=== PATIENT | female | born 1960 | race Caucasian/White ===

== ENCOUNTER 2019-06-13 09:04 | Emergency (ER) | payer MEDICARE ==
--- NOTE | 2019-06-13 09:23 | ERPHSYRPT ---
- History of Present Illness Time Seen by Provider: 06/13/19 09:10 Source: EMS, residential records Exam Limitations: clinical condition Physician History: Patient began having alteration in mental status and respiratory distress. She is taking antibiotics for bronchitis. EMS attempted to take patient to [facility], but her respiratory distress worsened, so she was brought to this emergency department for airway securement. Patient was recently in the past week discharged from [facility] for volume overload and she is a dialysis patient. EMS gave patient 2 mg milligrams of Narcan, but this was very temporary.of Narcan due to patient wearing a fentanyl patch which did slightly help her respiratory status, but then she continued to worsen and have gurgling breath sounds. EMS physical examination findings during the transportation of the patient emerged from found the patient to be diaphoretic/hot to the touch, lethargic to almost obtunded and presentation, and favored her left side she was leaning to that side. Again, patient brief improvement in mentation and breathing status when she was given 2 mg of Narcan, but this was temporary per EMS personnel. Timing/Duration: today, hour(s) (1) Activities at Onset: none Severity of Dyspnea-Max: severe Severity of Dyspnea-Current: severe Possible Cause: frequent episodes Modifying Factors: Improves With: nothing Associated Symptoms: No fever International travel in last 2 weeks: No Allergies/Adverse Reactions: Penicillins Allergy (Mild, Verified 06/21/16 16:03) HEART RATE GOES HIGH Home Medications: Oxycodone HCl/Acetaminophen [Percocet 7.5-325 mg Tablet] 1 each PO BID PRN 01/04 [History] Alendronate Sodium 70 mg [Fosamax 70 MG] 70 mg PO WEEKLY 07/22/14 [History ] Citalopram Hydrobromide [Celexa] 10 mg PO BID 07/22/14 [History] Fluticasone/Salmeterol Disc [Advair 250-50 Diskus 14 Dose] 1 each IH BID 07/22/14 [History] Metformin HCl 1000 mg [Glucophage 1000 MG] 1,000 mg PO BID 07/22/14 [History] Potassium Chloride 10 Meq Tab* [Klor Con 10 MEQ] 10 meq PO BID 07/22/14 [ History] Bumetanide 1 mg [Bumex 1 mg] 2 mg PO BID 01/05/16 [History] Spironolactone 25 mg [Aldactone 25 MG] 50 mg PO DAILY 01/06/16 [History] Torsemide [Demadex] 2 tab PO DAILY 01/06/16 [History] Oxycodone HCl [Oxycontin] 30 mg PO BID 05/10/16 [History] Clopidogrel Bisulfate 75 mg [PLAVIX 75 MG Tablet] 75 mg PO DAILY 06/21/16 [History] Albuterol 2.5 mg/3 ml Neb [Proventil 2.5 mg/3 ml Neb] 2.5 mg NEB Q6H 07/15 [History] Albuterol/Ipratropium 3ml Neb* [DUONEB 0.5-3 MG/3 ml Neb] 3 ml NEB QID [History] Cetirizine HCl [Zyrtec] 10 mg PO DAILY 07/15/16 [History] Chlorthalidone 50 mg PO BID PRN 07/15/16 [History] Diclofenac Sodium 50 mg [Voltaren 50 mg] 75 mg PO BID PRN 07/15/16 [ History] Gabapentin [Neurontin] 300 mg PO DAILY 07/15/16 [History] Glimepiride 4 mg [Amaryl 4 mg] 4 mg PO DAILY 07/15/16 [History] Insulin Detemir [Levemir] 20 unit SQ HS 07/15/16 [History] Ipratropium/Albuterol Sulfate [Combivent Inhaler] 15 gm IH QID 07/15/16 [History ] Linaclotide [Linzess] 145 mcg PO DAILY 07/15/16 [History] Lisinopril [Zestril] 2.5 mg PO BID 07/15/16 [History] Meloxicam 7.5 mg [Mobic 7.5 MG] 7.5 mg PO BID 07/15/16 [History] Metoclopramide HCl 10 mg [Reglan 10 MG] 10 mg PO BID PRN 07/15/16 [History ] Metoprolol Succinate 50 mg [Toprol Xl 50 MG] 50 mg PO DAILY 07/15/16 [ History] Multivitamin [Multivitamins] 1 each PO DAILY 07/15/16 [History] Omeprazole 20 MG [Prilosec 20 mg] 40 mg PO BID PRN 07/15/16 [History] Ropinirole HCl 0.5 mg [Requip 0.5 MG] 1 mg PO HS 07/15/16 [History] Rosuvastatin Calcium [Crestor] 10 mg PO HS 07/15/16 [History] Hx Tetanus, Diphtheria Vaccination/Date Given: Yes Hx Influenza Vaccination/Date Given: No Hx Pneumococcal Vaccination/Date Given: No - Review of Systems Constitutional: No Fever, No Chills Eyes: No Symptoms Ears, Nose, & Throat: No Symptoms Respiratory: Dyspnea, No Cough Cardiac: No Chest Pain, No Edema, No Syncope Abdominal/Gastrointestinal: No Abdominal Pain, No Nausea, No Vomiting, No Diarrhea Genitourinary Symptoms: No Dysuria, No Flank Pain Musculoskeletal: No Back Pain, No Neck Pain, No Fall Skin: No Rash Neurological: Lethargy, No Dizziness, No Focal Weakness, No Headache, No Sensory Changes Psychological: No Symptoms All Other Systems: Unable due to condition (ROS from report from nursing facility) - Past Medical History Pertinent Past Medical History: Yes Neurological History: Peripheral Neuropathy ENT History: No Pertinent History Cardiac History: Congestive Heart Failure, High Cholesterol, Hypertension, Peripheral Vascular Disease Respiratory History: COPD, Sleep Apnea Endocrine Medical History: Diabetes Type II Musculoskeletal History: Degenerative Disk Disease, Fibromyalgia, Other GI Medical History: No Pertinent History History: Renal Disease Psycho-Social History: Anxiety, Depression Female Reproductive Disorders: No Pertinent History - Past Surgical History Past Surgical History: Yes Neuro Surgical History: No Pertinent History Cardiac: No Pertinent History, Cardiac Catheterization, Cardiac Stent Respiratory: No Pertinent History Gastrointestinal: Cholecystectomy Genitourinary: No Pertinent History Musculoskeletal: Other Female Surgical History: Hysterectomy Other Surgical History: CARPAL TUNNEL - Social History Smoking Status: Current every day smoker How long have you smoked: 40 Exposure to second hand smoke: Yes Drug Use: none Patient Lives Alone: No - Nursing Vital Signs Nursing Vital Signs: Initial Vital Signs Respiratory Rate 10 L 06/13/19 09:04 O2 Sat by Pulse Oximetry 88 L 06/13/19 09:04 Pain Scale Pain Intensity 0 - Physical Exam General Appearance: severe distress, obese Eye Exam: No scleral icterus Ears, Nose, Throat Exam: pharyngeal erythema (moderate amount of dry secretions) Neck Exam: non-tender, supple, No meningismus, No lymphadenopathy (R), No lymphadenopathy (L) Respiratory Exam: respiratory distress, crackles/rales, rhonchi Cardiovascular/Chest Exam: tachycardia, No pulse deficit Abdominal/Gastrointestinal Exam: No distention Peripheral Pulses Exam: dorsalis-pedis (R): 1+, dorsalis-pedis (L): 1+ Neurologic Exam: other (GCS: 3, patient unresponsive) Skin Exam: normal color, warm, dry, ecchymosis (dorsum of hands and forearms), No petechiae, No jaundice SpO2 Interpretation: normal, O2 applied SpO2: 97 O2 Delivery: Non-rebreather Procedures - Intubation Intubation Indications: airway protection, respiratory distress Intubation Method: glidescope Tube Size (cm): 7.5 Medications: Etomidate (20mg), Rocuronium (70mg) Endotracheal Tube Confirmation: bilateral breath sounds, positive end tidal CO2 , good rise & fall of chest, stable or inc of O2 sat Intubation Complications: oral-unsuccessful attempt (times one, successful on the second time) Performed By: ED Physician Post Intubation Xray: Yes - Course Nursing assessment & vital signs reviewed: Yes EKG Interpreted by Me: RATE (112), Sinus Tach, LAFB, Right Bundle Branch Block, Other (possible signs of anterior myocardial infarction, but those were also present on 07/15/2016 EKG) - Radiology Exams Chest X-ray Interpretation: Interpreted by me, Reviewed by me, No Pneumothorax, Nml Heart Size, No Infiltrates, Other (Intubated with ET tube above the jose maria about 3cm; pulmonary vascular congestion, no effusions) - CT Exams Head CT Interpretation: Negative, Tele-radiologist Report, Other (radiologist's interpretation: Overall impression: Severe microangiopathy. No acute intracranial process, and generalized edema or mass. No signs of acute hemorrhage, area of low attenuation in diagnostic for acute ischemia, mass or extra-axial collection. No ventriculomegaly. No acute fractures. There is moderate opacification of the right maxillary sinus and sphenoid sinuses. There is patchy opacification of the ethmoids. Visualized mastoid air cells are well aerated. Soft tissues are unremarkable.) Ordered Tests: Active Orders 24 hr Category Date Time Status CO2 Monitoring STAT Care 06/13/19 09:23 Active Transit Coach Operator STAT Care 06/13/19 09:14 Active Catheter-[place] Hernandez STAT Care 06/13/19 09:13 Active Catheter-[place] Hernandez STAT Care 06/13/19 09:26 Completed EKG-ER Only STAT Care 06/13/19 09:13 Active Gastric Tube Insertion STAT Care 06/13/19 09:23 Active IV Insertion STAT Care 06/13/19 09:13 Active IV Insertion-2nd Peripheral STAT Care 06/13/19 09:13 Active NG to Suction (Insertion) ROUTINE Care 06/13/19 09:24 Active NPO (ED) STAT Care 06/13/19 09:23 Active Pulse Oximetry (ED) STAT Care 06/13/19 09:13 Active CHEST 1 VIEW (PORTABLE) Stat Exams 06/13/19 09:13 Ordered CHEST 1 VIEW (PORTABLE) Stat Exams 06/13/19 09:23 Ordered HEAD WITHOUT CONTRAST [CT] Stat Exams 06/13/19 09:24 Ordered HEAD WITHOUT CONTRAST [CT] Stat Exams 06/13/19 09:28 Ordered ARTERIAL BLOOD GASES Stat Lab 06/13/19 10:26 Completed BLOOD CULTURE Stat Lab 06/13/19 10:10 Received CBC W DIFF Stat Lab 06/13/19 09:05 Completed CMP Stat Lab 06/13/19 09:05 Completed CULTURE,URINE Stat Lab 06/13/19 10:15 Received Lactic Acid Stat Lab 06/13/19 10:26 Completed MAGNESIUM Stat Lab 06/13/19 09:05 Completed Manual Differential NC Stat Lab 06/13/19 09:05 Completed PROTIME WITH INR Stat Lab 06/13/19 09:05 Completed PTT Stat Lab 06/13/19 09:05 Completed TROPONIN Q3H Lab 06/13/19 09:05 Completed TROPONIN Q3H Lab 06/13/19 12:15 Ordered TROPONIN Q3H Lab 06/13/19 15:15 Ordered TROPONIN Q3H Lab 06/13/19 18:15 Ordered TROPONIN Q3H Lab 06/13/19 21:15 Ordered UA W/RFX UR CULTURE Stat Lab 06/13/19 10:15 Completed Medication Summary Generic Name Dose Route Start Last Admin Trade Name Freq PRN Reason Stop Dose Admin Propofol 100 mls @ 1 mls/hr 06/13/19 09:30 06/13/19 10:35 Propofol 1000 Mg/100 Ml Bottle IV 07/13/19 09:29 3 ml/hr .Q24H BENNETT 3 mls/hr Administration Sodium Chloride 1,000 mls @ 100 mls/hr 06/13/19 09:30 06/13/19 10:17 Sodium Chloride 0.9% 1000 Ml IV 07/13/19 09:29 100 mls/hr .Q10H BENNETT Administration Discontinued Medications Generic Name Dose Route Start Last Admin Trade Name Nadir PRN Reason Stop Dose Admin Etomidate 20 mg 06/13/19 09:23 06/13/19 10:16 Amidate 20 Mg/10 Ml IV 06/13/19 09:24 20 mg STAT ONE Administration Rocuronium [place] 70 mg 06/13/19 09:23 06/13/19 10:17 Zemuron 100 Mg/10 Ml IV 06/13/19 09:24 70 mg STAT ONE Administration Lab/Rad Data: Laboratory Result Diagrams 06/13/19 09:05 06/13/19 09:05 Laboratory Results 06/13/19 06/13/19 06/13/19 Range/Units 10:26 10:15 09:05 WBC (4.0-10.5) K/mm3 RBC (4.1-5.4) M/mm3 Hgb (12.0-16.0) gm/dl Hct (35-47) % MCV (78-100) fl MCH (26-32) pg MCHC (32-36) g/dl RDW (11.5-14.0) % Plt Count (150-450) K/mm3 MPV (6-9.5) fl Segmented Neutrophils (36.0-66.0) % Band Neutrophils (0.0-2.0) % Lymphocytes (Manual) (24-44) % Monocytes (Manual) (0.0-12.0) % Eosinophils (Manual) (0.00-3.0) % Platelet Estimate (NORMAL) RBC Morphology PT 11.1 (9.95-12.35) SECONDS INR 0.98 (0.8-3.0) APTT 31.3 (25.3-37.0) SECONDS Puncture Site RIGHT RADIAL pCO2 39 (35-45) mmHg pO2 285 H* (75-100) mmHg Base Excess 4.4 H (-2.0-2.0) O2 Saturation 93.4 L (94-100) g/dF ABG pH 7.47 H (7.35-7.45) ABG HCO3 28.4 H (22-28) ABG O2 Sat (Measured) 100.8 H (95-100) % Kendall Test YES A-a Gradient 379 a/A Ratio 0.43 Hemoglobin 11.7 Carboxyhemoglobin 6.9 (0.0-6.9) % THgb Methemoglobin 0.5 L (1.4-1.5) % Temperature 37.0 C POC O2 Flow Rate 100 % Tidal Volume 550 cc PEEP 5 cmH2O Sodium (137-145) mmol/L Potassium 4.2 (3.5-5.1) mmol/L Chloride (98-107) mmol/L Carbon Dioxide (22-30) mmol/L Anion Gap (5-15) MEQ/L BUN (7-17) mg/dL Creatinine (0.52-1.04) mg/dL Estimated GFR ML/MIN Glucose (74-106) mg/dL Lactic Acid 1.0 (0.4-2.0) Calcium (8.4-10.2) mg/dL Magnesium (1.6-2.3) mg/dL Total Bilirubin (0.2-1.3) mg/dL AST (14-36) U/L ALT (0-35) U/L Alkaline Phosphatase (38-126) U/L Troponin I (0.000-0.034) ng/mL Serum Total Protein (6.3-8.2) g/dL Albumin (3.5-5.0) g/dL Urine Color YELLOW (YELLOW) Urine Appearance SLIGHTLY CLOUDY (CLEAR) Urine pH 8.0 (5-6) Ur Specific [place] 1.013 (1.005-1.025) Urine Protein 100 (Negative) Urine Ketones NEGATIVE (NEGATIVE) Urine Blood NEGATIVE (0-5) Juan/ul Urine Nitrite NEGATIVE (NEGATIVE) Urine Bilirubin NEGATIVE (NEGATIVE) Urine Urobilinogen NEGATIVE (0-1) mg/dL Ur Leukocyte Esterase TRACE (NEGATIVE) Urine WBC (Auto) 26-50 (0-5) /HPF Urine RBC (Auto) 6-10 (0-2) /HPF U Hyaline Cast (Auto) 6-10 (0-2) /LPF U Epithel Cells (Auto) FEW (FEW) /HPF Urine Bacteria (Auto) FEW (NEGATIVE) /HPF Urine Mucus (Auto) SLIGHT (NEGATIVE) /HPF Urine Culture Reflexed YES (NO) Urine Glucose 50 (NEGATIVE) mg/dL 06/13/19 06/13/19 06/13/19 Range/Units 09:05 09:05 09:05 WBC (4.0-10.5) K/mm3 RBC (4.1-5.4) M/mm3 Hgb (12.0-16.0) gm/dl Hct (35-47) % MCV (78-100) fl MCH (26-32) pg MCHC (32-36) g/dl RDW (11.5-14.0) % Plt Count (150-450) K/mm3 MPV (6-9.5) fl Segmented Neutrophils (36.0-66.0) % Band Neutrophils (0.0-2.0) % Lymphocytes (Manual) (24-44) % Monocytes (Manual) (0.0-12.0) % Eosinophils (Manual) (0.00-3.0) % Platelet Estimate (NORMAL) RBC Morphology PT (9.95-12.35) SECONDS INR (0.8-3.0) APTT (25.3-37.0) SECONDS Puncture Site pCO2 (35-45) mmHg pO2 (75-100) mmHg Base Excess (-2.0-2.0) O2 Saturation (94-100) g/dF ABG pH (7.35-7.45) ABG HCO3 (22-28) ABG O2 Sat (Measured) (95-100) % Kendall Test A-a Gradient a/A Ratio Hemoglobin Carboxyhemoglobin (0.0-6.9) % THgb Methemoglobin (1.4-1.5) % Temperature C POC O2 Flow Rate % Tidal Volume cc PEEP cmH2O Sodium 137 (137-145) mmol/L Potassium 5.2 H (3.5-5.1) mmol/L Chloride 90 L (98-107) mmol/L Carbon Dioxide 30 (22-30) mmol/L Anion Gap 22.2 H (5-15) MEQ/L BUN 51 H (7-17) mg/dL Creatinine 6.56 H (0.52-1.04) mg/dL Estimated GFR 6.9 ML/MIN Glucose 161 H (74-106) mg/dL Lactic Acid (0.4-2.0) Calcium 9.5 (8.4-10.2) mg/dL Magnesium 2.1 (1.6-2.3) mg/dL Total Bilirubin 0.90 (0.2-1.3) mg/dL AST 27 (14-36) U/L ALT 24 (0-35) U/L Alkaline Phosphatase 116 (38-126) U/L Troponin I < 0.012 (0.000-0.034) ng/mL Serum Total Protein 8.5 H (6.3-8.2) g/dL Albumin 4.6 (3.5-5.0) g/dL Urine Color (YELLOW) Urine Appearance (CLEAR) Urine pH (5-6) Ur Specific [place] (1.005-1.025) Urine Protein (Negative) Urine Ketones (NEGATIVE) Urine Blood (0-5) Juan/ul Urine Nitrite (NEGATIVE) Urine Bilirubin (NEGATIVE) Urine Urobilinogen (0-1) mg/dL Ur Leukocyte Esterase (NEGATIVE) Urine WBC (Auto) (0-5) /HPF Urine RBC (Auto) (0-2) /HPF U Hyaline Cast (Auto) (0-2) /LPF U Epithel Cells (Auto) (FEW) /HPF Urine Bacteria (Auto) (NEGATIVE) /HPF Urine Mucus (Auto) (NEGATIVE) /HPF Urine Culture Reflexed (NO) Urine Glucose (NEGATIVE) mg/dL 06/13/19 Range/Units 09:05 WBC 9.1 (4.0-10.5) K/mm3 RBC 3.67 L (4.1-5.4) M/mm3 Hgb 12.3 (12.0-16.0) gm/dl Hct 37.7 (35-47) % MCV 102.7 H (78-100) fl MCH 33.5 H (26-32) pg MCHC 32.6 (32-36) g/dl RDW 15.0 H (11.5-14.0) % Plt Count 163 (150-450) K/mm3 MPV 11.9 H (6-9.5) fl Segmented Neutrophils 68 H (36.0-66.0) % Band Neutrophils 1 (0.0-2.0) % Lymphocytes (Manual) 21 L (24-44) % Monocytes (Manual) 7 (0.0-12.0) % Eosinophils (Manual) 3 (0.00-3.0) % Platelet Estimate NORMAL (NORMAL) RBC Morphology NORMAL PT (9.95-12.35) SECONDS INR (0.8-3.0) APTT (25.3-37.0) SECONDS Puncture Site pCO2 (35-45) mmHg pO2 (75-100) mmHg Base Excess (-2.0-2.0) O2 Saturation (94-100) g/dF ABG pH (7.35-7.45) ABG HCO3 (22-28) ABG O2 Sat (Measured) (95-100) % Kendall Test A-a Gradient a/A Ratio Hemoglobin Carboxyhemoglobin (0.0-6.9) % THgb Methemoglobin (1.4-1.5) % Temperature C POC O2 Flow Rate % Tidal Volume cc PEEP cmH2O Sodium (137-145) mmol/L Potassium (3.5-5.1) mmol/L Chloride (98-107) mmol/L Carbon Dioxide (22-30) mmol/L Anion Gap (5-15) MEQ/L BUN (7-17) mg/dL Creatinine (0.52-1.04) mg/dL Estimated GFR ML/MIN Glucose (74-106) mg/dL Lactic Acid (0.4-2.0) Calcium (8.4-10.2) mg/dL Magnesium (1.6-2.3) mg/dL Total Bilirubin (0.2-1.3) mg/dL AST (14-36) U/L ALT (0-35) U/L Alkaline Phosphatase (38-126) U/L Troponin I (0.000-0.034) ng/mL Serum Total Protein (6.3-8.2) g/dL Albumin (3.5-5.0) g/dL Urine Color (YELLOW) Urine Appearance (CLEAR) Urine pH (5-6) Ur Specific [place] (1.005-1.025) Urine Protein (Negative) Urine Ketones (NEGATIVE) Urine Blood (0-5) Juan/ul Urine Nitrite (NEGATIVE) Urine Bilirubin (NEGATIVE) Urine Urobilinogen (0-1) mg/dL Ur Leukocyte Esterase (NEGATIVE) Urine WBC (Auto) (0-5) /HPF Urine RBC (Auto) (0-2) /HPF U Hyaline Cast (Auto) (0-2) /LPF U Epithel Cells (Auto) (FEW) /HPF Urine Bacteria (Auto) (NEGATIVE) /HPF Urine Mucus (Auto) (NEGATIVE) /HPF Urine Culture Reflexed (NO) Urine Glucose (NEGATIVE) mg/dL - Progress Progress: improved Air Movement: good Progress Note: 06/13/19 09:43 Patienthas airway secured, sinus tachycardia on the monitor worker, oxygenating well on the pulse oximeter 06/13/19 10:12 Patient aunt is here in the emergency department. Patient's aunt states that on the visit of 06/12/2019, patient had difficulty focusing, but had coherent speech, no dysarthria, no focal weakness, no facial droop and no complaints of any pain or dyspnea, but the aunt had noticed that she was not focusing very well. 06/13/19 10:13 Patient gets dialysis Fri, Fri, Friday. 06/13/19 10:50 Doing well, starting to fight the ETT, propofol recently started at 5mcg/kg/min and will increase for sedation as needed. I will have respiratory therapy adjust ventilator settings as patient is getting alkalotic as seen by ABG post intubation Blood Culture(s) Obtained: Yes Antibiotics given: No Discussed with .: Other (@10:45, spoke with Dr Mederos, ED attending at [facility], about the patient's presentation, labs and imaging reports. Dr Mederos accepted the patient for transfer to the emergency department at [facility]) Will see patient in: hospital (full admit) Counseled pt/family regarding: lab results, diagnosis, need for follow-up, rad results - Departure Departure Disposition: Transfer ([facility]) Clinical Impression: Acute respiratory distress, Hyperkalemia, Microangiopathy Pulmonary edema Qualifiers: Chronicity: acute Qualified Code(s): J81.0 - Acute pulmonary edema Hypertension Qualifiers: Hypertension type: unspecified Qualified Code(s): I10 - Essential (primary) hypertension Condition: Serious Critical Care Time: Yes Critical Care Time(excluding separately billable procedures): Critical 30-74 mins Referrals: EDITH ATKINSON [Primary Care Provider] -
[2019-06-13 09:24] LABS: Hematocrit 37.7 % (35-47); Hemoglobin 12.3 gm/dl (12.0-16.0); Mean Cell Volume 102.7 fl (78-100); Mean Corpuscular Hemoglobin 33.5 pg (26-32); Mean Corpuscular Hgb Concent. 32.6 g/dl (32-36); Mean Platelet Volume 11.9 fl (6-9.5); Platelet Count 163 K/mm3 (150-450); Red Blood Count 3.67 M/mm3 (4.1-5.4); White Blood Count 9.1 K/mm3 (4.0-10.5)
[2019-06-13 09:29] LABS: ALBUMIN 4.6 g/dL (3.5-5.0); ANION GAP 22.2 MEQ/L (5-15); BILIRUBIN,TOTAL 0.9 mg/dL (0.2-1.3); Calcium 9.5 mg/dL (8.4-10.2); Creatinine 1 6.56 mg/dL (0.52-1.04); Potassium 5.2 mmol/L (3.5-5.1); Total Protein 8.5 g/dL (6.3-8.2)
[2019-06-13 09:37] LABS: INR 0.98 (0.8-3.0); PROTIME 11.1 SECONDS (9.95-12.35)
[2019-06-13 09:40] LABS: PTT 31.3 SECONDS (25.3-37.0)
[2019-06-13 09:56] LABS: BAND 1 % (0.0-2.0); Eosinophil 3 % (0.00-3.0); Lymphocytes 21 % (24-44); Monocyte 7 % (0.0-12.0); Neutrophils 68 % (36.0-66.0); Total Cells Counted 100
[2019-06-13 09:57] LABS: Platelet Estimate NORMAL (NORMAL)
[2019-06-13 10:14] VITALS: O2SAT 97
[2019-06-13] MEDS: Amidate 20 MG/10 ML IV ONE (10:16)
[2019-06-13] MEDS: Zemuron 100 MG/10 ML IV ONE (10:17)
[2019-06-13] MEDS: Sodium Chloride 0.9% 1000 ML 1,000 ML IV SCH (10:17)
[2019-06-13 10:32] LABS: A-aADO2 379; ABG HEMOGLOBIN 11.7; ABG POTASSIUM 4.2 (3.5-5.1); ABG SITE RIGHT RADIAL; ALLEN TEST OK? YES; ARTERIAL BLD GAS O2 SATURATION 100.8 % (95-100); ARTERIAL BLOOD GAS BASE EXCESS 4.4 (-2.0-2.0); ARTERIAL BLOOD GAS FIO2 100 %; ARTERIAL BLOOD GAS PCO2 39 mmHg (35-45); ARTERIAL BLOOD GAS PEEP 5 cmH2O; ARTERIAL BLOOD GAS PO2 285 mmHg (75-100); ARTERIAL BLOOD GAS pH 7.47 (7.35-7.45); CARBOXYHEMOGLOBIN 6.9 % THgb (0.0-6.9); HCO3- 28.4 (22-28); HGB O2 SAT 93.4 g/dF (94-100); Methhemoglobin 0.5 % (1.4-1.5); paO2 pAO1 0.43
[2019-06-13] MEDS: Propofol 1000 mg/100 ml Bottle 100 ML IV SCH (10:35)
[2019-06-13 10:38] LABS: Appearance SLIGHTLY CLOUDY (CLEAR); Bacteria FEW /HPF (NEGATIVE); Bilirubin NEGATIVE (NEGATIVE); Blood NEGATIVE Ery/ul (0-5); Epithelial Cells FEW /HPF (FEW); Glucose 50 mg/dL (NEGATIVE); Ketones NEGATIVE (NEGATIVE); Leukocyte Esterase TRACE (NEGATIVE); Mucus SLIGHT /HPF (NEGATIVE); Nitrite NEGATIVE (NEGATIVE); Protein,Urine Dip 100 (Negative); Specific Gravity 1.013 (1.005-1.025); Urobilinogen NEGATIVE mg/dL (0-1); WBC 26-50 /HPF (0-5)
[2019-06-13 12:03] VITALS: BP 132/70; PULSE 114
--- NOTE | 2019-06-14 08:09 | XRAY ---
Indication: Unresponsive. Respiratory distress. Multiple contiguous axial images obtained through the head without contrast. Comparison: June 21, 2016. Again age-appropriate global atrophy and moderate periventricular degenerative micro-ischemia bilaterally. No acute intracranial hemorrhage, abnormal extra-axial fluid collection, or mass effect. Fourth ventricle is midline. Bony calvarium intact. There is moderate mucosal thickening of both ethmoid, both sphenoid, and right maxillary sinuses. Mastoid air cells are clear. New incompletely visualized endotracheal tube and OG tube. Impression: Again nonacute senile brain. New paranasal sinus disease with endotracheal and OG tubes in situ. Comment: Preliminary interpretation was made by [facility]. No discrepancy. CTDI 62.54
--- NOTE | 2019-06-14 09:13 | XRAY ---
Indication: Intubation. Respiratory distress. Comparison: July 16, 2016. Portable chest demonstrates new endotracheal tube tip in right mainstem bronchus with subsequent underinflated left lung. Stable right lung suture material. No focal infiltrate, consolidation, large effusion, or pneumothorax. Heart and mediastinal structures within normal limits.
--- NOTE | 2019-06-14 09:22 | XRAY ---
Indication: Endotracheal tube reposition. New OG tube. Comparison: Taken earlier in the day. Portable chest demonstrates endotracheal tube withdrawn with tip now 2 cm above the jose maria. New OG tube with the tip presumed in the stomach. Interval developing diffuse bilateral interstitial opacities without consolidation, large effusion, or cardiomegaly.
== END 2019-06-13 11:35 | disposition short-term general hospital (02) ==
LOC: ED 09:04
DX: R06.03 Acute respiratory distress (principal); E87.5 Hyperkalemia; I99.8 Other disorder of circulatory system; J81.0 Acute pulmonary edema; I10 Essential (primary) hypertension; E11.9 Type 2 diabetes mellitus without complications; G62.9 Polyneuropathy, unspecified; I73.9 Peripheral vascular disease, unspecified; I50.9 Heart failure, unspecified; E78.00 Pure hypercholesterolemia, unspecified; F41.9 Anxiety disorder, unspecified; F32.9 Major depressive disorder, single episode, unspecified; Z79.899 Other long term (current) drug therapy; Z79.891 Long term (current) use of opiate analgesic
CPT/HCPCS: 31500; 36000; 36415; 36600; 51702; 70450; 71045; 80053; 81001; 82375; 82803; 83605; 83735; 84484; 85025; 85610; 85730; 87040; 87086; 93005; 93041; 94002; 94760; 94799; 96360; 96361; 96365; 96374; 96375; 99285; 99291; J2704

== ENCOUNTER 2019-06-30 08:09 | Emergency (ER) | payer MEDICARE ==
--- NOTE | 2019-06-30 08:26 | ERPHSYRPT ---
- History of Present Illness Time Seen by Provider: 06/30/19 08:13 Source: EMS Exam Limitations: other (AMS) Physician History: 58 years old female with history of COPD, hypertension, hyperlipidemia, congestive heart failure, end-stage renal disease analysis is guarded ER with chief complaint of altered mental status. As per report patient has not been acting normal since yesterday, decreased level of consciousness, more sleepy, having difficulty breathing, was evaluated last night at regional ER with negative workup and was discharged. Per skilled nursing patient iis confused since last night and today when she went for dialysis and sent here. Patient is moving all 4 extremities and follows some commands. She is confused and history is limited. Timing/Duration: yesterday Severity: moderate Associated Symptoms: confusion, fatigue Allergies/Adverse Reactions: Penicillins Allergy (Mild, Verified 06/21/16 16:03) HEART RATE GOES HIGH Home Medications: Oxycodone HCl/Acetaminophen [Percocet 7.5-325 mg Tablet] 1 each PO BID PRN 01/04 [History] Alendronate Sodium 70 mg [Fosamax 70 MG] 70 mg PO WEEKLY 07/22/14 [History ] Citalopram Hydrobromide [Celexa] 10 mg PO BID 07/22/14 [History] Fluticasone/Salmeterol Disc [Advair 250-50 Diskus 14 Dose] 1 each IH BID 07/22/14 [History] Metformin HCl 1000 mg [Glucophage 1000 MG] 1,000 mg PO BID 07/22/14 [History] Potassium Chloride 10 Meq Tab* [Klor Con 10 MEQ] 10 meq PO BID 07/22/14 [ History] Bumetanide 1 mg [Bumex 1 mg] 2 mg PO BID 01/05/16 [History] Spironolactone 25 mg [Aldactone 25 MG] 50 mg PO DAILY 01/06/16 [History] Torsemide [Demadex] 2 tab PO DAILY 01/06/16 [History] Oxycodone HCl [Oxycontin] 30 mg PO BID 05/10/16 [History] Clopidogrel Bisulfate 75 mg [PLAVIX 75 MG Tablet] 75 mg PO DAILY 06/21/16 [History] Albuterol 2.5 mg/3 ml Neb [Proventil 2.5 mg/3 ml Neb] 2.5 mg NEB Q6H 07/15 [History] Albuterol/Ipratropium 3ml Neb* [DUONEB 0.5-3 MG/3 ml Neb] 3 ml NEB QID [History] Cetirizine HCl [Zyrtec] 10 mg PO DAILY 07/15/16 [History] Chlorthalidone 50 mg PO BID PRN 07/15/16 [History] Diclofenac Sodium 50 mg [Voltaren 50 mg] 75 mg PO BID PRN 07/15/16 [ History] Gabapentin [Neurontin] 300 mg PO DAILY 07/15/16 [History] Glimepiride 4 mg [Amaryl 4 mg] 4 mg PO DAILY 07/15/16 [History] Insulin Detemir [Levemir] 20 unit SQ HS 07/15/16 [History] Ipratropium/Albuterol Sulfate [Combivent Inhaler] 15 gm IH QID 07/15/16 [History ] Linaclotide [Linzess] 145 mcg PO DAILY 07/15/16 [History] Lisinopril [Zestril] 2.5 mg PO BID 07/15/16 [History] Meloxicam 7.5 mg [Mobic 7.5 MG] 7.5 mg PO BID 07/15/16 [History] Metoclopramide HCl 10 mg [Reglan 10 MG] 10 mg PO BID PRN 07/15/16 [History ] Metoprolol Succinate 50 mg [Toprol Xl 50 MG] 50 mg PO DAILY 07/15/16 [ History] Multivitamin [Multivitamins] 1 each PO DAILY 07/15/16 [History] Omeprazole 20 MG [Prilosec 20 mg] 40 mg PO BID PRN 07/15/16 [History] Ropinirole HCl 0.5 mg [Requip 0.5 MG] 1 mg PO HS 07/15/16 [History] Rosuvastatin Calcium [Crestor] 10 mg PO HS 07/15/16 [History] Ascorbic Acid [Vitamin C] 500 mg DAILY 06/13/19 [History] Calcium Carbonate 500 mg DAILY 06/13/19 [History] Docusate Sodium 100 mg [Colace 100 MG] 100 mg DAILY 06/13/19 [History] Guaifenesin 600 mg ER [Mucinex 600MG ER Tabs] 600 mg DAILY 06/13/19 [ History] Insulin Detemir [Levemir] 30 unit SQ DAILY 06/13/19 [History] Midodrine HCl 10 mg TID 06/13/19 [History] Multivitamin/Iron/Folic Acid [Centrum Adults Tablet] 1 ea DAILY 06/13/19 [ History] Polyethylene Glycol 3350 17 gm [Miralax Powder 17GM PACKET] 17 gm PO DAILY [History] Sevelamer Carbonate 800 mg TID 06/13/19 [History] fentaNYL [Fentanyl] 50 mcg WEEKLY 06/13/19 [History] levoFLOXacin [Levofloxacin] 750 mg DAILY 06/13/19 [History] Hx Tetanus, Diphtheria Vaccination/Date Given: Yes Hx Influenza Vaccination/Date Given: No Hx Pneumococcal Vaccination/Date Given: No - Review of Systems Constitutional: Other (cant be donebecause of AMS) - Past Medical History Pertinent Past Medical History: Yes Neurological History: Peripheral Neuropathy ENT History: No Pertinent History Cardiac History: Congestive Heart Failure, High Cholesterol, Hypertension, Peripheral Vascular Disease Respiratory History: COPD, Sleep Apnea Endocrine Medical History: Diabetes Type II Musculoskeletal History: Degenerative Disk Disease, Fibromyalgia, Other GI Medical History: No Pertinent History History: Renal Disease Psycho-Social History: Anxiety, Depression Female Reproductive Disorders: No Pertinent History - Past Surgical History Past Surgical History: Yes Neuro Surgical History: No Pertinent History Cardiac: No Pertinent History, Cardiac Catheterization, Cardiac Stent Respiratory: No Pertinent History Gastrointestinal: Cholecystectomy Genitourinary: No Pertinent History Musculoskeletal: Other Female Surgical History: Hysterectomy Other Surgical History: CARPAL TUNNEL - Social History Smoking Status: Current every day smoker How long have you smoked: 40 Exposure to second hand smoke: Yes Drug Use: none Patient Lives Alone: No - Nursing Vital Signs Nursing Vital Signs: Initial Vital Signs Pulse Rate 86 06/30/19 08:10 Respiratory Rate 20 06/30/19 08:10 Blood Pressure 130/80 06/30/19 08:10 O2 Sat by Pulse Oximetry 100 06/30/19 08:10 Pain Scale Pain Intensity 0 - Susu Coma Scale Best Eye Response ([place]): (3) open to voice Best Verbal Response ([place]): (2) incomprehsible sounds Best Motor Response ([place]): (5) localizes to pain [place] Total: 10 - Physical Exam Eye Exam: bilateral eye: normal inspection, PERRL, EOMI Ears, Nose, Throat Exam: normal ENT inspection, pharynx normal Neck Exam: normal inspection, non-tender, supple Respiratory: normal breath sounds, diminished breath sounds Cardiovascular: regular rate/rhythm, normal heart sounds, normal peripheral pulses Gastrointestinal: soft, normal bowel sounds, No tenderness Extremity Exam: normal inspection, normal range of motion, pelvis stable Mental Status: disoriented to person, disoriented to place, disoriented to time Skin Exam: normal color, warm, dry SpO2: 100 O2 Delivery: Nasal Cannula - Course Nursing assessment & vital signs reviewed: Yes EKG Interpreted by Me: RATE (85), NORMAL AXIS, NORMAL INTERVALS, Other (Non specific T wave changes) Ordered Tests: Active Orders 24 hr Category Date Time Status Accucheck STAT Care 06/30/19 08:18 Active Flag Signalman STAT Care 06/30/19 08:22 Active EKG-ER Only STAT Care 06/30/19 08:18 Active IV Insertion STAT Care 06/30/19 08:18 Active CHEST 1 VIEW (PORTABLE) Stat Exams 06/30/19 08:22 Completed HEAD WITHOUT CONTRAST [CT] Stat Exams 06/30/19 08:22 Completed ABG [ARTERIAL BLOOD GASES] Stat Lab 06/30/19 09:06 Completed CBC W DIFF Stat Lab 06/30/19 08:30 Completed CMP Stat Lab 06/30/19 08:30 Completed CULTURE,URINE Stat Lab 06/30/19 08:22 Ordered Lactic Acid Stat Lab 06/30/19 09:06 Completed MAGNESIUM Stat Lab 06/30/19 08:30 Completed NT PRO BNP Stat Lab 06/30/19 08:30 Completed TROPONIN Q3H Lab 06/30/19 08:30 Completed TROPONIN Q3H Lab 06/30/19 11:35 Completed UA W/RFX UR CULTURE Stat Lab 06/30/19 08:22 Completed Medication Summary Discontinued Medications Generic Name Dose Route Start Last Admin Trade Name Freq PRN Reason Stop Dose Admin Levofloxacin/Dextrose 250 mg in 50 mls @ 50 mls/hr 06/30/19 10:19 06/30/19 10 :59 Levaquin 250mg/50ml D5w IV 06/30/19 11:18 Infused STAT STA Infusion Levofloxacin/Dextrose Confirm 06/30/19 10:21 Levaquin 250mg/50ml D5w Administered 06/30/19 10:22 Dose 250 mg in 50 mls @ ud IV .STK-MED ONE Lab/Rad Data: Laboratory Result Diagrams 06/30/19 08:30 06/30/19 08:30 Laboratory Results 06/30/19 06/30/19 06/30/19 Range/Units 11:35 09:06 09:06 WBC (4.0-10.5) K/mm3 RBC (4.1-5.4) M/mm3 Hgb (12.0-16.0) gm/dl Hct (35-47) % MCV (78-100) fl MCH (26-32) pg MCHC (32-36) g/dl RDW (11.5-14.0) % Plt Count (150-450) K/mm3 MPV (6-9.5) fl Gran % (36.0-66.0) % Eos # (Auto) (0-0.5) Absolute Lymphs (auto) (1.0-4.6) Absolute Monos (auto) (0.0-1.3) Lymphocytes % (24.0-44.0) % Monocytes % (0.0-12.0) % Eosinophils % (0.00-5.0) % Basophils % (0.0-0.4) % Absolute Granulocytes (1.4-6.9) Basophils # (0-0.4) Puncture Site LEFT BRACHIAL pCO2 46 H (35-45) mmHg pO2 64 L (75-100) mmHg Base Excess 8.7 H (-2.0-2.0) O2 Saturation 92.9 L (94-100) g/dF ABG pH 7.47 H (7.35-7.45) ABG HCO3 33.5 H* (22-28) ABG O2 Sat (Measured) 96.5 (95-100) % Kendall Test yes A-a Gradient 78 a/A Ratio 0.45 Hemoglobin 11.2 Carboxyhemoglobin 2.8 (0.0-6.9) % THgb Methemoglobin 0.8 L (1.4-1.5) % Temperature 37.0 C POC O2 Flow Rate 28 % Sodium (137-145) mmol/L Potassium 4.6 (3.5-5.1) mmol/L Chloride (98-107) mmol/L Carbon Dioxide (22-30) mmol/L Anion Gap (5-15) MEQ/L BUN (7-17) mg/dL Creatinine (0.52-1.04) mg/dL Estimated GFR ML/MIN Glucose (74-106) mg/dL Lactic Acid 1.7 (0.4-2.0) Calcium (8.4-10.2) mg/dL Magnesium (1.6-2.3) mg/dL Total Bilirubin (0.2-1.3) mg/dL AST (14-36) U/L ALT (0-35) U/L Alkaline Phosphatase (38-126) U/L Troponin I 0.018 (0.000-0.034) ng/mL NT-Pro-B Natriuret Pep (0-900) pg/mL Serum Total Protein (6.3-8.2) g/dL Albumin (3.5-5.0) g/dL Urine Color (YELLOW) Urine Appearance (CLEAR) Urine pH (5-6) Ur Specific Clare (1.005-1.025) Urine Protein (Negative) Urine Ketones (NEGATIVE) Urine Blood (0-5) Juan/ul Urine Nitrite (NEGATIVE) Urine Bilirubin (NEGATIVE) Urine Urobilinogen (0-1) mg/dL Ur Leukocyte Esterase (NEGATIVE) Urine WBC (Auto) (0-5) /HPF Urine RBC (Auto) (0-2) /HPF U Hyaline Cast (Auto) (0-2) /LPF U Epithel Cells (Auto) (FEW) /HPF Urine Bacteria (Auto) (NEGATIVE) /HPF U Non-Squamous Epi Cells (FEW) /HPF Urine Culture Reflexed (NO) Urine Glucose (NEGATIVE) mg/dL 06/30/19 06/30/19 06/30/19 Range/Units 08:30 08:30 08:30 WBC 7.1 (4.0-10.5) K/mm3 RBC 3.32 L (4.1-5.4) M/mm3 Hgb 10.9 L (12.0-16.0) gm/dl Hct 35.9 (35-47) % MCV 108.1 H (78-100) fl MCH 32.8 H (26-32) pg MCHC 30.4 L (32-36) g/dl RDW 14.9 H (11.5-14.0) % Plt Count 158 (150-450) K/mm3 MPV 12.3 H (6-9.5) fl Gran % 69.6 H (36.0-66.0) % Eos # (Auto) 0.44 (0-0.5) Absolute Lymphs (auto) 1.20 (1.0-4.6) Absolute Monos (auto) 0.51 (0.0-1.3) Lymphocytes % 16.8 L (24.0-44.0) % Monocytes % 7.1 (0.0-12.0) % Eosinophils % 6.2 H (0.00-5.0) % Basophils % 0.3 (0.0-0.4) % Absolute Granulocytes 4.97 (1.4-6.9) Basophils # 0.02 (0-0.4) Puncture Site pCO2 (35-45) mmHg pO2 (75-100) mmHg Base Excess (-2.0-2.0) O2 Saturation (94-100) g/dF ABG pH (7.35-7.45) ABG HCO3 (22-28) ABG O2 Sat (Measured) (95-100) % Kendall Test A-a Gradient a/A Ratio Hemoglobin Carboxyhemoglobin (0.0-6.9) % THgb Methemoglobin (1.4-1.5) % Temperature C POC O2 Flow Rate % Sodium 142 (137-145) mmol/L Potassium 5.0 (3.5-5.1) mmol/L Chloride 95 L (98-107) mmol/L Carbon Dioxide 33 H (22-30) mmol/L Anion Gap 18.9 H (5-15) MEQ/L BUN 37 H (7-17) mg/dL Creatinine 6.87 H (0.52-1.04) mg/dL Estimated GFR 6.5 ML/MIN Glucose 182 H (74-106) mg/dL Lactic Acid (0.4-2.0) Calcium 9.6 (8.4-10.2) mg/dL Magnesium 2.4 H (1.6-2.3) mg/dL Total Bilirubin 0.60 (0.2-1.3) mg/dL AST 44 H (14-36) U/L ALT 46 H (0-35) U/L Alkaline Phosphatase 138 H (38-126) U/L Troponin I 0.024 (0.000-0.034) ng/mL NT-Pro-B Natriuret Pep 94150 H (0-900) pg/mL Serum Total Protein 7.2 (6.3-8.2) g/dL Albumin 4.2 (3.5-5.0) g/dL Urine Color (YELLOW) Urine Appearance (CLEAR) Urine pH (5-6) Ur Specific Clare (1.005-1.025) Urine Protein (Negative) Urine Ketones (NEGATIVE) Urine Blood (0-5) Juan/ul Urine Nitrite (NEGATIVE) Urine Bilirubin (NEGATIVE) Urine Urobilinogen (0-1) mg/dL Ur Leukocyte Esterase (NEGATIVE) Urine WBC (Auto) (0-5) /HPF Urine RBC (Auto) (0-2) /HPF U Hyaline Cast (Auto) (0-2) /LPF U Epithel Cells (Auto) (FEW) /HPF Urine Bacteria (Auto) (NEGATIVE) /HPF U Non-Squamous Epi Cells (FEW) /HPF Urine Culture Reflexed (NO) Urine Glucose (NEGATIVE) mg/dL 06/30/19 Range/Units 08:22 WBC (4.0-10.5) K/mm3 RBC (4.1-5.4) M/mm3 Hgb (12.0-16.0) gm/dl Hct (35-47) % MCV (78-100) fl MCH (26-32) pg MCHC (32-36) g/dl RDW (11.5-14.0) % Plt Count (150-450) K/mm3 MPV (6-9.5) fl Gran % (36.0-66.0) % Eos # (Auto) (0-0.5) Absolute Lymphs (auto) (1.0-4.6) Absolute Monos (auto) (0.0-1.3) Lymphocytes % (24.0-44.0) % Monocytes % (0.0-12.0) % Eosinophils % (0.00-5.0) % Basophils % (0.0-0.4) % Absolute Granulocytes (1.4-6.9) Basophils # (0-0.4) Puncture Site pCO2 (35-45) mmHg pO2 (75-100) mmHg Base Excess (-2.0-2.0) O2 Saturation (94-100) g/dF ABG pH (7.35-7.45) ABG HCO3 (22-28) ABG O2 Sat (Measured) (95-100) % Kendall Test A-a Gradient a/A Ratio Hemoglobin Carboxyhemoglobin (0.0-6.9) % THgb Methemoglobin (1.4-1.5) % Temperature C POC O2 Flow Rate % Sodium (137-145) mmol/L Potassium (3.5-5.1) mmol/L Chloride (98-107) mmol/L Carbon Dioxide (22-30) mmol/L Anion Gap (5-15) MEQ/L BUN (7-17) mg/dL Creatinine (0.52-1.04) mg/dL Estimated GFR ML/MIN Glucose (74-106) mg/dL Lactic Acid (0.4-2.0) Calcium (8.4-10.2) mg/dL Magnesium (1.6-2.3) mg/dL Total Bilirubin (0.2-1.3) mg/dL AST (14-36) U/L ALT (0-35) U/L Alkaline Phosphatase (38-126) U/L Troponin I (0.000-0.034) ng/mL NT-Pro-B Natriuret Pep (0-900) pg/mL Serum Total Protein (6.3-8.2) g/dL Albumin (3.5-5.0) g/dL Urine Color ABIGAIL (YELLOW) Urine Appearance TURBID (CLEAR) Urine pH 6.0 (5-6) Ur Specific [place] 1.020 (1.005-1.025) Urine Protein >=500 (Negative) Urine Ketones NEGATIVE (NEGATIVE) Urine Blood LARGE (0-5) Juan/ul Urine Nitrite NEGATIVE (NEGATIVE) Urine Bilirubin NEGATIVE (NEGATIVE) Urine Urobilinogen NEGATIVE (0-1) mg/dL Ur Leukocyte Esterase MODERATE (NEGATIVE) Urine WBC (Auto) >100 (0-5) /HPF Urine RBC (Auto) >101 (0-2) /HPF U Hyaline Cast (Auto) 3-5 (0-2) /LPF U Epithel Cells (Auto) FEW (FEW) /HPF Urine Bacteria (Auto) MODERATE (NEGATIVE) /HPF U Non-Squamous Epi Cells FEW (FEW) /HPF Urine Culture Reflexed NO (NO) Urine Glucose NEGATIVE (NEGATIVE) mg/dL - Progress Progress: improved, re-examined Progress Note: 58 years old is evaluated for altered mental status. Patient gradually improved without any intervention. EKG negative for any acute ischemic changes. Negative troponins. She has a negative CT head for any acute finding. Chest x -ray negative for pneumonia. Grossly unremarkable workup for any acute finding. She does have UTI. Started on renal dose of Levaquin. Patient missed her dialysis today, discussed with Dr. Rudd at [facility] ER and patient is being transferred. 06/30/19 10:54 - Departure Departure Disposition: Transfer Clinical Impression: Acute UTI (urinary tract infection), Encephalopathy acute Condition: Fair Critical Care Time: No Referrals: SILVIA BAUTISTA MD [Primary Care Provider] -
[2019-06-30 08:35] LABS: Absolute Neutrophil Ct (ANC) 4.97 (1.4-6.9); BASOPHIL % 0.3 % (0.0-0.4); Basophil (Absolute #) 0.02 (0-0.4); Eosinophil % 6.2 % (0.00-5.0); Eosinophil (Absolute #) 0.44 (0-0.5); Hematocrit 35.9 % (35-47); Hemoglobin 10.9 gm/dl (12.0-16.0); Lymphocytes % 16.8 % (24.0-44.0); Mean Cell Volume 108.1 fl (78-100); Mean Corpuscular Hemoglobin 32.8 pg (26-32); Mean Corpuscular Hgb Concent. 30.4 g/dl (32-36); Mean Platelet Volume 12.3 fl (6-9.5); Monocyte (Absolute #) 0.51 (0.0-1.3); Monocytes % 7.1 % (0.0-12.0); Neutrophil % 69.6 % (36.0-66.0); Platelet Count 158 K/mm3 (150-450); Red Blood Count 3.32 M/mm3 (4.1-5.4); Red Cell Distribution Width 14.9 % (11.5-14.0); White Blood Count 7.1 K/mm3 (4.0-10.5)
--- NOTE | 2019-06-30 08:52 | XRAY ---
Indication: Acute mental status change. Multiple contiguous axial images obtained through the head without contrast. Comparison: June 13, 2019. Stable age-appropriate global atrophy, moderate periventricular degenerative micro-ischemia, and remote left basal ganglia/right thalamus lacunar infarcts. No acute intracranial hemorrhage, abnormal extra-axial fluid collection, or mass effect. Fourth ventricle is midline. Bony calvarium intact. Visualized paranasal sinuses and mastoid air cells are clear. Impression: Stable nonacute senile brain with remote lacunar infarcts. CT DI 76.30
--- NOTE | 2019-06-30 08:54 | XRAY ---
Indication: Acute mental status change. Comparison: June 14, 2019. Portable chest less inflated again with chronic lung markings and right mid to lower lung suture material. Heart is not enlarged. No new/acute findings.
[2019-06-30 09:03] LABS: ALBUMIN 4.2 g/dL (3.5-5.0); ANION GAP 18.9 MEQ/L (5-15); BILIRUBIN,TOTAL 0.6 mg/dL (0.2-1.3); Calcium 9.6 mg/dL (8.4-10.2); Creatinine 1 6.87 mg/dL (0.52-1.04); MAGNESIUM 2.4 mg/dL (1.6-2.3); Total Protein 7.2 g/dL (6.3-8.2)
[2019-06-30 09:15] LABS: A-aADO2 78; ABG HEMOGLOBIN 11.2; ABG POTASSIUM 4.6 (3.5-5.1); ARTERIAL BLD GAS O2 SATURATION 96.5 % (95-100); ARTERIAL BLOOD GAS BASE EXCESS 8.7 (-2.0-2.0); ARTERIAL BLOOD GAS FIO2 28 %; ARTERIAL BLOOD GAS PCO2 46 mmHg (35-45); ARTERIAL BLOOD GAS PO2 64 mmHg (75-100); ARTERIAL BLOOD GAS pH 7.47 (7.35-7.45); CARBOXYHEMOGLOBIN 2.8 % THgb (0.0-6.9); HCO3- 33.5 (22-28); HGB O2 SAT 92.9 g/dF (94-100); Methhemoglobin 0.8 % (1.4-1.5); paO2 pAO1 0.45
[2019-06-30 09:16] LABS: ABG SITE LEFT BRACHIAL; ALLEN TEST OK? yes
[2019-06-30 09:45] LABS: Appearance TURBID (CLEAR); Bacteria MODERATE /HPF (NEGATIVE); Bilirubin NEGATIVE (NEGATIVE); Blood LARGE Ery/ul (0-5); Epithelial Cells FEW /HPF (FEW); Glucose NEGATIVE (NEGATIVE); Ketones NEGATIVE (NEGATIVE); Leukocyte Esterase MODERATE (NEGATIVE); Nitrite NEGATIVE (NEGATIVE); Non-Squamous Epithelial Cells FEW /HPF (FEW); Protein,Urine Dip >=500 (Negative); Urobilinogen NEGATIVE mg/dL (0-1); WBC >100 /HPF (0-5)
[2019-06-30 09:46] LABS: RBC >101 /HPF (0-2)
[2019-06-30] MEDS ORDERED: Levaquin 250MG/50ML D5W 250 MG/50 ML BAG IV STA (10:19)
[2019-06-30] MEDS ORDERED: Levaquin 250MG/50ML D5W 250 MG/50 ML BAG IV ONE (10:21)
[2019-06-30 11:04] VITALS: BP 123/81; PULSE 88
[2019-06-30] MEDS ORDERED: BABY ASPIRIN 81 MG CHEW ONE (15:50)
[2019-06-30 15:54] VITALS: O2SAT 100
== END 2019-06-30 12:25 | disposition short-term general hospital (02) ==
LOC: ED 08:09
DX: N39.0 Urinary tract infection, site not specified (principal); G93.49 Other encephalopathy; J44.9 Chronic obstructive pulmonary disease, unspecified; I10 Essential (primary) hypertension; E78.5 Hyperlipidemia, unspecified; I50.9 Heart failure, unspecified; N18.6 End stage renal disease; R41.82 Altered mental status, unspecified; R41.0 Disorientation, unspecified; R53.83 Other fatigue; Z79.891 Long term (current) use of opiate analgesic; Z79.899 Other long term (current) drug therapy; Z79.84 Long term (current) use of oral hypoglycemic drugs; Z79.4 Long term (current) use of insulin
CPT/HCPCS: 36000; 36415; 36600; 51702; 70450; 71045; 80053; 81001; 82375; 82803; 82962; 83605; 83735; 83880; 84484; 85025; 87086; 93005; 93041; 96365; 99285; J1956; A9270-GY